=== PATIENT | female | born 1995 | race Caucasian/White ===

== ENCOUNTER 2024-06-11 14:29 | Outpatient (CLI) | payer OTHER, SELFPAY ==
--- NOTE | ~2024-06-11 | US_ITS ---
EXAMINATION: US OB transvaginal DATE: 06/11/2024 15:01 INDICATION: Confirmation of viability. . TECHNIQUE: Real-time transvaginal pelvic ultrasound was performed. COMPARISON: None. FINDINGS: The uterus measures 7.8 x 4.1 x 5.0 cm. There is an intrauterine gestational sac. A yolk sac is ident ified. The crown rump length measures 1.0 cm, which correlates with an estimated gestational a ge of 7 weeks and 1 day(s) (+/-) 5 day(s). heart motion is identified measuring 142 beats per m inute (bpm) by M-mode Doppler. The right ovary is not visualized. The left ovary measures 1.6 x 2.1 x 1.6 cm. There is no free fluid in the pelvis. IMPRESSION: 1. Single living intrauterine gestation with estimated date of delivery of 01/27/2025. Reviewed, dictated and finalized at location A. IMPRESSION: 1. Single living intrauterine gestation with estimated date of delivery of 01/27.
== END 2024-06-11 14:30 | disposition home or self-care (01) ==
PROVIDERS: PCP Advanced Practice Midwife; Visit Provider Advanced Practice Midwife
DX: O36.80X0 Pregnancy with inconclusive fetal viability, not applicable or unspecified (principal); Z3A.00 Weeks of gestation of pregnancy not specified
CPT/HCPCS: 76817

== ENCOUNTER 2024-08-27 10:17 | Outpatient (CLI) | payer OTHER, SELFPAY ==
--- NOTE | ~2024-08-27 | US_ITS ---
EXAMINATION: US OB /maternal detail DATE: 08/27/2024 12:25 INDICATION: anatomic survey. TECHNIQUE: Real-time ultrasound of the pelvis was performed. COMPARISON: Ultrasound 06/11/2024 FINDINGS: There is a single living fetus in variable presentation. The placenta is posterior, 2.9 cm from the cervix. The cervical length is 4.5 cm on transabdominal images, which is normal. heart rate is 137 beats per minute (bpm). The amniotic fluid volume is subjectively normal. The following biometric data were obtained: Biparietal diameter (BPD): 4.2 cm; head circumference (HC): 15.4 cm; abdominal circumference (AC): 12 .0 cm; femur length (FL): 2.6 cm. These measurements are discordant with high HC/AC ratio. Estimated weight is 212 g +/- 32 g, which correlates with the 16th percentile when 01/25/25 is u sed as estimated date of delivery. As single measurements, these parameters are each equal to the following estimated gestational ages: BPD: 18 weeks 5 days. HC: 18 weeks 3 days. AC: 17 weeks 5 days. FL: 17 weeks 6 days. estimated gestational age based solely on measurements from this exam is 18 weeks 1 days +/- 1 weeks 2 days. The cerebral ventricles, cerebellum, cisterna magna, nuchal fold, lip, and spine are normal. The hear t is normal. The diaphragm, stomach, kidneys, and bladder are normal. There are two umbilical arterie s to yield a 3-vessel cord. The cord insertion is normal. IMPRESSION: 1. Single living fetus in variable presentation. 2. Estimated weight is 212 g +/- 32 g, which correlates with the 16th percentile when 01/25/25 is used as estimated date of delivery. Note that estimated date of delivery based on the ultrasound f rom 06/11/2024 would be 01/27/2025. 3. Discordant biometrics with high HC/AC ratio. 4. Normal anatomic survey. Reviewed, dictated and finalized at location [] INIST IMPRESSION: 1. Single living fetus in variable presentation. 2. Estimated weight is 212 g +/- 32 g, which correlates with the 16th pe rcentile when 01/25/25 is used as estimated date of delivery. Note that estimate d date of delivery based on the ultrasound from 06/11/2024 would be 01/27/2025. 3. Discordant biometrics with high HC/AC ratio. 4. Normal anatomic survey.
== END 2024-08-27 10:18 | disposition home or self-care (01) ==
PROVIDERS: PCP Advanced Practice Midwife; Visit Provider Obstetrics & Gynecology Gynecology
DX: Z36.9 Encounter for antenatal screening, unspecified (principal)
CPT/HCPCS: 76805

== ENCOUNTER 2024-09-24 08:22 | Outpatient (CLI) | payer OTHER, SELFPAY ==
--- NOTE | ~2024-09-24 | US_ITS ---
EXAMINATION: US OB follow up DATE: 09/24/2024 08:54 INDICATION: Follow-up growth. Discordant biometrics. TECHNIQUE: Real-time ultrasound of the pelvis was performed. COMPARISON: Ultrasound 08/27/2024, 06/11/2024 FINDINGS: There is a single living fetus in breech presentation. The placenta is posterior, 5.7 cm from the ce rvix. The cervical length is 4.4 cm on transabdominal images, which is normal. heart rate is 16 0 beats per minute (bpm). The amniotic fluid index is 11.8 cm, which is normal. The following biometric data were obtained: Biparietal diameter (BPD): 5.4 cm; head circumference (HC): 20.0 cm; abdominal circumference (AC): 17 .7 cm; femur length (FL): 3.9 cm. These measurements are concordant. Estimated weight is 505 g +/- 76 g, which correlates with the 44th percentile when 01/25/25 is u sed as estimated date of delivery. As single measurements, these parameters are each equal to the following estimated gestational ages: BPD: 22 weeks 3 days. HC: 22 weeks 1 days. AC: 22 weeks 4 days. FL: 22 weeks 3 days. estimated gestational age based solely on measurements from this exam is 22 weeks 3 days +/- 1 weeks 4 days. IMPRESSION: 1. Single living fetus in breech presentation. 2. Estimated weight is 505 g +/- 76 g, which correlates with the 44th percentile when 01/25/25 is used as estimated date of delivery. Note that estimated date of delivery based on the ultrasound f rom 06/11/2024 would be 01/27/2025. Reviewed, dictated and finalized at location A. [employer] IMPRESSION: 1. Single living fetus in breech presentation. 2. Estimated weight is 505 g +/- 76 g, which correlates with the 44th pe rcentile when 01/25/25 is used as estimated date of delivery. Note that estimate d date of delivery based on the ultrasound from 06/11/2024 would be 01/27/2025.
== END 2024-09-24 08:23 | disposition home or self-care (01) ==
PROVIDERS: PCP Advanced Practice Midwife; Visit Provider Obstetrics & Gynecology Gynecology
DX: Z36.2 Encounter for other antenatal screening follow-up (principal); Z3A.22 22 weeks gestation of pregnancy
CPT/HCPCS: 76816

== ENCOUNTER 2025-01-06 16:46 | Outpatient (CLI) | payer OTHER, SELFPAY ==
[2025-01-06 17:39] LABS: Basophils Percent Auto 0.1 % (0.2-1.2); Eosinophils Absolute Auto 0.1 K/mm3 (0-0.3); Eosinophils Percent Auto 0.7 % (0-4.4); Hematocrit 34.3 % (37.0-47.0); Hemoglobin 10.9 g/dL (12.0-15.0); Immature Granulocyte Absolute 0.04 K/mm3 (0.00-0.031); Immature Granulocyte Percent A 0.5 % (0-0.5); Lymphocytes Absolute Auto 1.34 K/mm3 (0.9-3.2); Lymphocytes Percent Auto 16.5 % (18.3-44.2); Mean Corpuscular HGB Conc 31.8 g/dl (32-36); Mean Corpuscular Volume 91.2 fl (80-100); Mean Platelet Volume 11.6 fl (7.4-10.4); Monocytes Absolute Auto 0.7 K/mm3 (0.1-0.6); Neutrophils Percent Auto 74.2 % (45.5-73.1); Platelet Count Result 178 k/mm3 (150-375); Red Blood Count 3.76 M/mm3 (4.2-5.4); Red Cell Distribution Width 13.7 % (11.5-14.5); White Blood Count 8.1 K/mm3 (4.5-10.0)
[2025-01-06 17:41] LABS: Add Urine Microscopic? NO; Appearance Urine Clear (Clear); Bilirubin Urine Negative (Negative); Blood Urine Negative (Negative); Color Urine Yellow (Yellow); Glucose Urine UA Negative (Negative); Ketones Urine Negative (Negative); Leukocyte Esterase Ur Negative LEU/UL (Negative); Nitrate Urine Negative (Negative); Protein Urine Negative (Negative); Specific Grav Ur 1.004 (1.001-1.035); Urobilinogen Urine 0.2 mg/dL (<2.0)
[2025-01-06 18:12] LABS: Creatinine Urine 17.7 mg/dL; Total Protein Urine Random 17 mg/dL; Ur Ttl Prot Creatinine Ratio 0.96 mg/mg (0-0.20)
[2025-01-06 19:19] LABS: Alanine Aminotransferase 19 U/L (6-35); Albumin Level 3.3 g/dL (3.5-5.1); Alkaline Phosphatase 150 U/L (38-126); Anion Gap 5 mmol/L (4-12); Aspartate Amino Transferase 24 U/L (14-36); Bilirubin,Total 0.2 mg/dL (0.2-1.3); Blood Urea Nitrogen 6 mg/dL (7-17); Carbon Dioxide 24 mmol/L (22-30); Chloride 107 mmol/L (98-107); Estimated Glomerular Filt Rate > 60; Glucose 82 mg/dL (65-110); Potassium 3.7 mmol/L (3.4-5.0); Sodium 136 mmol/L (137-145); Uric Acid 3.5 mg/dL (2.5-7.5)
[2025-01-06 19:32] VITALS: BMI 32.9
== END 2025-01-06 19:30 | disposition home or self-care (01) ==
LOC: ANHOBOP 16:53 → ANHOBPP 16:54
PROVIDERS: Obstetrics & Gynecology; PCP Advanced Practice Midwife; Visit Provider Advanced Practice Midwife
DX: O13.9 Gestational [pregnancy-induced] hypertension without significant proteinuria, unspecified trimester (principal); Z3A.00 Weeks of gestation of pregnancy not specified
CPT/HCPCS: 36415; 59025; 80053; 81003; 82570; 84156; 84550; 85025; 99199

== ENCOUNTER 2025-01-24 09:30 | Inpatient (IN) | payer OTHER, SELFPAY ==
[2025-01-24] VITALS (181 sets, daily range): BP systolic 86–165; BP diastolic 36–127; PULSE 79–217; TEMP 36.6–37; O2SAT 92–100; BMI 33.3
--- OUTSIDE RECORDS SUMMARY | 2025-01-24 10:58 | XMS_ITS | Referral Summary ---
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 Role Phone Joseline Riebiro MD Unavailable [phone] Phillip Ramirez MD Primary Care Provider [phone] Allergies Active Allergy Reactions Criticality Noted Date Comments Sulfa (Sulfonamide Antibiotics) Hives Medium 1008/2020 Medications fluticasone propionate (FLONASE) 50 mcg/actuation nasal spray 2 Active fexofenadine-ps eudoephedrine (Debbi-D 12 Hour) 60-120 mg per 12 hr tabletIndicatio ns:Dysfunction of both eustachian tubes Take 1 tablet by mouth 2 (two) times a day 60 tablet 11 2 Active vit 35-drqa-cimvn-d cowan 27mg iron- 800 mcg-250 mg capsule Take by mouth Active magnesium gluconate 200 mg tabletIndicatio ns:hypomagnesem ia 0.5 tablets (100 mg total) Two daily Active UNABLE TO FIND daily Med Name: Focus Helps calm and focus attention Active Active Problems Problem Noted Date Diagnosed Date Family history of breast cancer 04/17/2024 Chronic eczematous otitis externa of both ears 0 12/23/2021 Non-seasonal allergic rhinitis 12/23/2021 Chronic pansinusitis 12/23/2021 Immunizations Immunization Administration Dates Next Due Pfizer SARS-CoV-2 Monovalent Vaccination (12+ Yrs) PURPLE 12/13/2020,11/20/2020 Social History Tobacco Use Types Packs/Day Years Used Date Smoking Tobacco: Never Smokeless Tobacco: Never AUDIT-C Answer Date Recorded Frequency of Alcohol Consumption Not on file 04/17/2024 Q2: How many drinks containi ng alcohol do you have on a typical day when you are drinking? 5 or 6 04/17/2024 Q3: How often do you have si x or more drinks on one occasion? Weekly 04/17/2024 Comments No Sex and Gender Information Value Date Recorded Sex Assigned at Not on file Legal Sex Female 11:49 AM [employer] Gender Identity Not on file Sexual Orientation Straight 04/14/2024 8: 28 AM CDT Last Filed Vital Signs Vital Sign Reading Time Taken Comments Blood Pressure 114/77 04/17/2024 1:08 PM CDT Pulse 70 04/17/2024 1:08 PM CDT Temperature 36.7 C (98 F) 04/17/2024 1:08 PM CDT Respiratory Rate 18 04/17/2024 1:08 PM CDT Oxygen Saturation 100% 04/17/2024 1:08 PM CDT Inhaled Oxygen Concentration - - Weight 78.8 kg (173 lb 12.8 oz) 04/17/2024 1:08 PM CDT Height 163.8 cm (5' 4.5) 04/17/2024 1:08 PM CDT Body Mass Index 29.37 04/17/2024 1:08 PM CDT Plan of Treatment Not on file Procedures Procedure Name Priority Date/Time Associated Diagnosis Comments SCREENING MAMMOGRAM BILATERAL W ISMAEL Schedule Routine, Read Routine (OP Routine) 04/25/2024 2:45 PM CDT Family history of breast cancer Breast cancer screening by mammogram from Last 3 Months or Most Recently Relevant to Health Maintenance Results * Screening Mammogram Bilateral W Ismael (04/25/2024 2:45 PM CDT) Anatomical Region Laterality Modality Breast Bilateral Mammography Impressions 04/25/2024 3:50 PM CDT BI-RADS ATLAS category (overall): 2 - Benign There is no mammographic evidence of malignancy. A 1 year screening mammogram is recommended. The patient has been or will be contacted. We recommend annual screening mammography for women at average risk of breast cancer beginning at age 40, based on guidelines of the [employer] (ACR Practice Parameter for the Performance of Screening and Diagnostic Mammography) and [employer]. For women with and elevated risk of breast cancer, please refer to the ACR Practice Parameter for specific screening recommendations. The patient will be entered into a reminder system with a target due date of 1 year for her next screening exam. Narrative 04/25/2024 3:50 PM CDT Screening Mammogram Bilateral W Ismael: 04/25/24 The study was acquired using full field digital technology and interpreted from soft copy. 2D digital mammographic views, as well as 3D digital tomosynthesis were performed in the CC and MLO projections. CLINICAL: Family history of breast cancer Breast cancer screening by mammogram. No relevant medical history has been documented for this patient. History of breast cancer in Maternal Grandmother. No comparisons were made when reading this study. BREAST TISSUE: The breasts are heterogeneously dense, which may obscure small masses. FINDINGS: The are benign right breast calcifications.No suspicious masses, suspicious calcifications, or other suspicious findings are seen within either breast. There has been no suspicious change. 

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
--- OUTSIDE RECORDS SUMMARY | 2025-01-24 10:58 | XMS_ITS | Clinical Summary ---
Author Organization [facility] [address] [place] [address] Care Team Providers Care Embossograph Operator Name Role Phone Joseline Ribeiro MD Unavailable [phone] Phillip Ramirez MD Primary Care Provider [phone] Allergies Active Allergy Reactions Criticality Noted Date Comments Sulfa (Sulfonamide Antibiotics) Hives Medium 1008/2020 Medications fluticasone propionate (FLONASE) 50 mcg/actuation nasal spray 2 Active fexofenadine-ps eudoephedrine (Debbi-D 12 Hour) 60-120 mg per 12 hr tabletIndicatio ns:Dysfunction of both eustachian tubes Take 1 tablet by mouth 2 (two) times a day 60 tablet 11 2 Active vit 73-[id number]-ubgun-d cowan 27mg iron- 800 mcg-250 mg capsule [...] SARS-CoV-2 Monovalent Vaccination (12+ Yrs) PURPLE 12/13/2020,11/20/2020 Surgical History Surgery Date Site/Laterality Comments EYE SURGERY SINUS SURGERY 08/28/2018 - 08/27/2019 Balloon dilation WISDOM TOOTH EXTRACTION Medical History Medical History Date Comments Allergic rhinitis Sinusitis Asthma Anxiety History of COVID-19 Deviated septum Ear problems Headache Migraine Family History Medical History Relation Name Comments Skin cancer Maternal Grandfather Breast cancer Maternal Grandmother Hyperlipidemia Other Hypertension Other Migraines Other Relation Name Status Comments Maternal Grandfather Maternal Grandmother Mother Alive Other Social History Tobacco Use Types Packs/Day Years [...] on file Legal Sex Female 11:49 AM [employer] Gender Identity Not on file Sexual Orientation Straight 04/14/2024 8: 28 AM CDT Obstetrics History Para Term AB IAB SAB Ectopic Multiple Livin g Live Births 0 0 0 Last Filed Vital Signs Vital Sign Reading [...] 04/17/2024 1:08 PM CDT Plan of Treatment Health Maintenance Due Date Last Done Comments Cervical Cancer Screening 1994 Depression Screening 1994 Hepatitis C Screening 1994 Regular Well Visit/Exam 18-64 2012 HPV Vaccines (3 - 3-dose series) 01/23/2014 10/31/2013, 04/15/2013 DTaP/Tdap/Td Vaccine (7 - Td or Tdap) 05/13/2019 05/13/2009, 03/15/2000, 07/04/1995, Additional history exists Covid-19 Vaccine (3 - season) 2024 12/13/2020, 11/20/2020 Breast Cancer Screening-Mammogram 04/25/2025 04/25/2024 Influenza Vaccine (Season Ended) 2025 07/18/2014, 07/16/2014, 06/24/2008, Additional history exists Hepatitis B Screening Completed 1994 , 1994, 1994 Varicella Vaccines Completed 01/29/2008, 07/04/2000 Pneumococcal vaccine <65 Aged Out No longer eligible based on patient's age to complete this topic Procedures Procedure Name Priority Date/Time Associated Diagnosis [...] age 40, based on guidelines of the [employer] (ACR Practice Parameter for the Performance of Screening and Diagnostic Mammography) and [employer]. For women [...] Most Recently Relevant to Health Maintenance Insurance [facility] CHOICE PLUS [facility]ICE PLUS Care Teams Embossograph Operator Relationship Specialty Start Date End Date Phillip Ramirez MD [address] [facility] [address] [place] [address] PCP - General Family Medicine 02/15/24 Joseline Ribeiro MD [address] [facility] [address] [place] [address] Referring Physician Gynecology 02/15/24
[2025-01-24] MEDS: miSOPROStol 25 MCG TABLET 50 MCG BUCCAL (11:14)
[2025-01-24 11:45] LABS: Basophils Percent Auto 0.1 % (0.2-1.2); Eosinophils Percent Auto 0.5 % (0-4.4); Hemoglobin 12.4 g/dL (12.0-15.0); Immature Granulocyte Absolute 0.04 K/mm3 (0.00-0.031); Immature Granulocyte Percent A 0.5 % (0-0.5); Lymphocytes Absolute Auto 1.17 K/mm3 (0.9-3.2); Lymphocytes Percent Auto 13.3 % (18.3-44.2); Mean Corpuscular HGB Conc 32.6 g/dl (32-36); Mean Corpuscular Hemoglobin 29.2 pg (26-34); Mean Corpuscular Volume 89.6 fl (80-100); Mean Platelet Volume 11.6 fl (7.4-10.4); Monocytes Absolute Auto 0.7 K/mm3 (0.1-0.6); Monocytes Percent Auto 7.4 % (2.6-8.5); Neutrophils Absolute Auto 6.9 K/mm3 (1.3-6.7); Neutrophils Percent Auto 78.2 % (45.5-73.1); Platelet Count Result 177 k/mm3 (150-375); Red Blood Count 4.24 M/mm3 (4.2-5.4); Red Cell Distribution Width 14.3 % (11.5-14.5); White Blood Count 8.8 K/mm3 (4.5-10.0)
--- NOTE | 2025-01-24 12:20 | WPDOBADMIT ---
Obstetrics - Admit Note Admission Note: record reviewed. No pertinent additions to the history and/or any subsequent changes in the physical findings that are not consistent with the expected course of the were found. Additions to the history and/or subsequent changes in the physical findings follow. Admit for SROM, sve /-2, AROM forebag large amount of clear, odorless fluid
[2025-01-24 12:23] LABS: Syphilis IgG/IgM Antibody Negative (Negative)
[2025-01-24 12:34] LABS: HIV 1/2 Ab P24 Ag Result Negative (Negative)
[2025-01-24] MEDS: LACTATED RINGERS 500 ML 999 ML IV CONT (12:38)
--- NOTE | 2025-01-24 13:31 | WPDANESEPPF ---
Anes - Initial Pre Proc Eval Date/Time: 01/24/25 13:31 Surgeon: Robby Harrison MD Pre Op Diagnosis: Labor Patient Data Age: 29 Gender: F Height: 1.63 m Weight: 88 kg Last Vital Signs O2 Del Method Room Air 01/24/25 11:43 Allergies Allergy/AdvReac Type Severity Reaction Status Date / Time No Known Allergies Allergy Verified 01/24/25 10:51 Home Medications ?Medication ?Instructions ?Recorded ?Confirmed ?Type aspirin 81 mg chewable tablet 81 mg PO DAILY 12/26/24 12/26/24 History (Aspirin Childrens) docusate sodium 100 mg capsule 100 mg PO DAILY 12/26/24 12/26/24 History (Colace) fexofenadine 60 mg tablet (Debbi 60 mg PO Q12H 12/26/24 12/26/24 History Allergy) magnesium aspart,citrate,oxide mg PO 12/26/24 History (Triple Magnesium Complex) omeprazole 10 mg capsule,delayed 10 mg PO DAILY 12/26/24 12/26/24 History release vit no.95-ferrous 1 tablet PO DAILY 12/26/24 12/26/24 History fumarate 28 mg-folic acid 800 mcg tablet () vitamin D3 20 mcg-vit K2 180 tablet PO 12/26/24 History mcg-calcium fructoborate 216 mg tablet Laboratory Tests 01/24/25 11:32 WBC 8.8 K/mm3 (4.5-10.0) RBC 4.24 M/mm3 (4.2-5.4) Hgb 12.4 g/dL (12.0-15.0) Hct 38.0 % (37.0-47.0) MCV 89.6 fl (80-100) MCH 29.2 pg (26-34) MCHC 32.6 g/dl (32-36) RDW 14.3 % (11.5-14.5) Plt Count 177 k/mm3 (150-375) MPV 11.6 H fl (7.4-10.4) Immature Gran % (Auto) 0.5 % (0-0.5) Neut % (Auto) 78.2 H % (45.5-73.1) Lymph % (Auto) 13.3 L % (18.3-44.2) Tripp % (Auto) 7.4 % (2.6-8.5) Eos % (Auto) 0.5 % (0-4.4) Baso % (Auto) 0.1 L % (0.2-1.2) Lymph # (Auto) 1.17 K/mm3 (0.9-3.2) Tripp # (Auto) 0.7 H K/mm3 (0.1-0.6) Eos # (Auto) 0.0 K/mm3 (0-0.3) Baso # (Auto) 0.0 K/mm3 (0.0-0.1) Abs Immat Gran (auto) 0.04 H K/mm3 (0.00-0.031) Absolute Neuts (auto) 6.9 H K/mm3 (1.3-6.7) Absolute Nucleated RBC 0.000 K/mm3 (0.0-0.012) Nucleated RBC % 0.0 % (0.0-0.2) Syphilis IgG/IgM Ab Negative (Negative) HIV 1&2 Ab/P24 Ag 4thGn Negative (Negative) Blood Type A Negative Antibody Screen Negative Patient hx anesthesia problems: none Family hx anesthesia problems: none Results Review: All pre-operative results and documents have been reviewed as part of the pre-operative evaluation. [facility] Past Medical History Medical History (Updated 01/24/25 @ 13:31 by Tanner Barraza DO) Asthma Social History Social History Do You Feel Safe in your Home?: Yes Lack of Transportation: No Lack of Food: Never True Current Housing: I Have Housing Concerned About Future Housing: No Difficulty Paying Gas/Electric Bills: No Difficulty Paying for Meds: No Currently Unemployed: No Education: Master's Degree or Higher Difficulty w/ Childcare or Family Care: No Spiritual care concerns: No Anes - Eval Final PreProcedure Day of Procedure 01/24/25 13:31 Patient weight: obese Heart: regular rate and rhythm Lungs: clear to auscultation Airway: Mallampati scale class II Neurological: alert and oriented Last oral intake: >/= 8 hours ASA classification: II Emergent: no Anesthetic plan: proceed Anesthesia type and monitoring: general GIVS and standard monitoring Results Review: All pre-operative results and documents have been reviewed as part of the pre-operative evaluation. Informed Consent: The patient's anesthetic plan and its attendant risks and benefits were discussed with the patient/family/POA. Questions were solicited and answers provided to the satisfaction of the patient/family/POA.
[2025-01-24] MEDS: OXYTOCIN 30 UNITS/NS 500 ML 30 UNITS/500 ML BAG IV CONT (15:43)
[2025-01-24] MEDS: LACTATED RINGERS 1,000 ML 125 ML IV CONT (19:39)
[2025-01-24] MEDS: ONDANSETRON INJ 4 MG/2 ML VIAL IV PUSH (23:41)
[2025-01-25] VITALS (23 sets, daily range): BP systolic 101–135; BP diastolic 59–100; PULSE 75–169; RESP 16–19; TEMP 36.6–37.1; O2SAT 81–100
--- NOTE | 2025-01-25 01:28 | PM.OBPRVD ---
OB - Vaginal Delivery Note Procedure Delivery date: 01/25/25 Induction method: None Delivery augmentation: Rupture of Membranes and Pitocin Delivery monitor: External FHT and External Uterine Route of delivery: Episiotomy description: None Laceration Description: Superficial Delivery repair: vicryl (1 suture) Specimen: Yes Quantitative Blood Loss (ml): 75 Anesthesia type: Epidural Disposition: Floor Complications: No immediate complications Baby Date of : 01/25/25 Time of : 01:06 Gestational Age by Date: 40 gender: Female presentation: vertex position: Left Occiput Anterior Placenta delivery description: Manual Removal and Other (us at bs, clear endometrial stripe) Cord Vessel Description: 3 Vessels and Delayed Cord Clamping score one minute: 8 score five minutes: 9
[2025-01-25] MEDS: OXYTOCIN 30 UNITS/NS 500 ML 30 UNITS/500 ML BAG 125 UNITS IV CONT (01:49)
[2025-01-25] MEDS: WITCH HAZEL 40 PADS 1 PAD TOPICAL (03:12)
[2025-01-25] MEDS: BENZOCAINE 20% AER SPR (*SP) 56 GM CAN 1 SPRAY TOPICAL (03:12)
--- NOTE | 2025-01-25 03:49 | OBPPTRN ---
Patient transferred to post room #290 via wheelchair. Support person present. Oriented to unit, room, information board, rooming in, admission packet and security measures. Patient verbalizes understanding.
--- NOTE | 2025-01-25 07:35 | PC.NURSE ---
Patient requested a latch check. Baby is currently sleeping and mom is holding her. Patient states that she feels that the latch on the left is more painful than the right. Patient is encouraged to call out for assistance when infant is awake and ready to feed.
--- NOTE | 2025-01-25 08:50 | PC.NURSE ---
Patient called out for a latch check. Mom has baby in cradle on the right breast. Baby is not well aligned and mom is shown how to place her tummy to tummy for a closer latch that doesn't tug on the breast tissue. The lips are flanged out and the parents are shown how to observe the corner of baby's mouth for a wide angle. Mom says she has some soreness but that the left nipple hurts more. She states that her nipples have been very sensitive throughout . The left nipple has a small bruised area. Mom will call out for a latch check when baby feeds on the left side. RN updated.
[2025-01-25] MEDS: IBUPROFEN 600 MG TABLET PO ×2 (10:08→16:18)
--- NOTE | 2025-01-25 13:05 | PC.NURSE ---
Met with patient to see if the last feeding went well. She states that baby has been sleepy at the last 2 feedings. Encouraged her to call for assistance with waking baby and positioning at the next feeding. Patient states she will call if needed.
--- NOTE | 2025-01-25 17:05 | PC.NURSE ---
Patient requested assistance. She was able to feed baby on the right breast for 5 minutes before baby fell asleep. She would like to try football on the left breast. Mom demonstrates how to hold baby and her breast very well. Baby is sleepy and does not give any attempts to latch. Mom is encouraged that she is doing all the right steps and holding baby appropriately. She does state that her nipples are very sore. She is using coconut oil and has silverettes and hydrogel pads. Encouraged mom to bring baby to the breast when latching and to maintain the very close deep latch throughout the feeding with baby's chin on her breast the entire time. Mom did take a class. She was provided with the hand expression visual aid and encouraged to watch the hand expression video that goes along with the handout. Parents are receptive to education and agree that they will call out for additional assistance as needed. RN updated.
[2025-01-26 03:35] LABS: Hematocrit 33.9 % (37.0-47.0); Hemoglobin 10.9 g/dL (12.0-15.0)
[2025-01-26] MEDS: IBUPROFEN 600 MG TABLET PO ×2 (05:03→13:17)
[2025-01-26 08:11] VITALS: BP 122/82; PULSE 78; RESP 18; TEMP 37; O2SAT 98
--- NOTE | 2025-01-26 09:47 | P.PNOB_ITS ---
OB - PN: Subj Subjective Date/time seen: 01/26/25 09:47 Patient comments: no complaints, pain well controlled, incisional pain, tolerating diet and flatus present OB - PN: Obj Data Labs 01/26/25 03:30 Labs: Laboratory Results - last 24 hr 01/26/25 03:30 Hgb 10.9 L Hct 33.9 L OB - PN A/P Plan day: 1 Plan: routine care Comments: No problems, routine care Time Spent With Patient Time: Total time spent is greater than 50% in coordination of care (as documented) at patient's floor/unit and/or counseling patient: Exam 2 Const: General: comfortable, no acute distress and alert Resp: Effort & Inspection: normal respiratory effort Auscultation: no crackles, no rales and no rhonchi Cardio: Rate: regular rate Heart sounds: no click, no murmurs and no rubs GI: Inspection: non-distended GI Palp: No Tenderness to palpation present (GI) Auscultation: normal bowel sounds Other: Incision - CDI Extrem: General: normal to inspection, no pedal edema and no calf tenderness
[2025-01-26 19:05] VITALS: BP 118/79; PULSE 68; RESP 16; TEMP 36.8; O2SAT 99
[2025-01-27 07:35] VITALS: BP 117/73; PULSE 72; RESP 18; TEMP 36.4; O2SAT 99
[2025-01-27 08:00] VITALS: PULSE 72; RESP 18; O2SAT 99
--- NOTE | 2025-01-27 08:29 | P.PNOB_ITS ---
OB - PN: Subj Subjective Date/time seen: 01/27/25 08:29 Patient comments: no complaints, pain well controlled and tolerating diet OB - PN: Obj Data Labs 01/26/25 03:30 OB - PN A/P Plan day: 2 Plan: routine care and discharge home Time Spent With Patient Time: Total time spent is greater than 50% in coordination of care (as documented) at patient's floor/unit and/or counseling patient: Exam 2 Const: General: comfortable and no acute distress Resp: Effort & Inspection: normal respiratory effort Auscultation: no rales, no rhonchi and no wheezes Cardio: Rate: regular rate Heart sounds: no click, no murmurs and no rubs GI: GI Palp: Yes Soft to palpation and No Tenderness to palpation present (GI) Auscultation: normal bowel sounds Extrem: General: normal to inspection, no pedal edema and no calf tenderness
--- NOTE | 2025-01-27 08:29 | P.DS_ITS ---
DS: Admitting Diagnosis Discharge Date 01/27/25 Admitting Diagnosis term DS: Discharge Diagnosis Discharge Diagnosis (1) Term delivered: Code(s): O80 - Encounter for full-term uncomplicated delivery Status: Acute OB - DS: Summary OB Procedures : None OB Procedures Intrapartum: Spontaneous Vag Delivery OB Procedures: : None Peripartum Data Laceration Description: Superficial Episiotomy description: None Time Spent with Patient Time attestation: Total time spent providing and/or coordinating discharge services: Discharge Plan Discharge Consulting providers: Velia Peña Discharging Clinician: Robby Harrison Patient Disposition: Home Activity: pelvic rest Diet: regular Patient Instructions: Antibiotic Form Patient Language: Upper Sorbian Stand Alone Forms: General Discharge Information Follow-up/Referrals: Robby Harrison MD [Physician] - Discharge Medications: Continued aspirin [Aspirin Childrens] 81 mg tablet,chewable 81 mg PO DAILY docusate sodium [Colace] 100 mg capsule 100 mg PO DAILY PNV cmb#95-ferrous fumarate-FA [] 28 mg iron- 800 mcg tablet 1 tablet PO DAILY vit D3-vit K2-ca fructoborate 20 mcg-180 mcg- 216 mg tablet PO omeprazole 10 mg capsule,delayed release(DR/EC) 10 mg PO DAILY fexofenadine [Debbi Allergy] 60 mg tablet 60 mg PO Q12H Triple Magnesium Complex 400 mg magnesium capsule PO Date of admission: 01/24/25 09:30 Primary Care Provider: Catrachita Hoyos Admitting Provider: Robby Harrison Attending physician on admission: Robby Harrison Condition: Stable
[2025-01-27] MEDS: IBUPROFEN 600 MG TABLET PO (08:41)
[2025-01-27] MEDS: DIBUCAINE 1% OINTMENT 30 GM TUBE 1 APPLIC TOPICAL (08:42)
--- NOTE | 2025-01-27 09:00 | PC.NURSE ---
Patient called out for a latch check. She has been using a nipple shield on the left breast due to a cracked and painful nipple. Baby latches well on the right breast but doesn't suckle at this time. We reviewed sleepy versus cluster feeding and anticipatory guidance for their first days at home. Parents have chosen to supplement with formula after due to satisfaction. Mom states that she has a Spectra pump at home and has a nipple measure to fit herself with. Encouraged her to use the resources on the [employer] web site for general pump setting recommendations. Advised that patient focus on adjusting to the highest comfortable suction setting. She is educated to pump after any feedings she doesn't feel like baby stimulated her breast adequately. If she wants to build a supply of milk, it is recommended she pump after the first of the morning. Discussed sufficient volumes for supplementation and increasing as infant's need increases. Parents are referred back to the Mom/Baby Guide for reference of common questions and concerns. Dad is present and very supportive. Patient is aware that the Services are available to her after discharge and that she may call us at any time. We reviewed use of the nipple shield and sizing options as well as how to ensure baby has a deep latch throughout the feeding. Mom states that she feels better since we spoke and that her questions were answered. Parents are encouraged to call out for any additional assistance needed. RN updated.
== END 2025-01-27 12:35 | disposition home or self-care (01) | DRG 807 ==
LOC: ANHLDR 11:25 → ANHOB2 01-25 03:50
PROVIDERS: Advanced Practice Midwife; Admitting Provider Obstetrics & Gynecology; PCP Advanced Practice Midwife; Visit Provider Obstetrics & Gynecology
DX: O70.0 First degree perineal laceration during delivery (principal); Z37.0 Single live birth; Z3A.40 40 weeks gestation of pregnancy
CPT/HCPCS: 36415; 85014; 85018; 85025; 86593; 86703; 86850; 86900; 86901; A9270; G0432; J2405; J2590; J2795; J7120

== ENCOUNTER 2025-05-02 08:30 | Outpatient (RCR) | payer OTHER, SELFPAY ==
--- NOTE | 2025-03-18 15:28 | OPREHPOC ---
Outpatient Therapy Plan of Care This is a Multidisciplinary Plan of Care that may contain components documented by all disciplines (PT, OT, and ST.) PT Problem 1 PT Problem #1 Knowledge Deficit PT Goal 1 Goal / Goal Update 1. Patient will perform independent HEP Target Visit 2 PT Problem 2 PT Problem #2 Pain PT Goal 1 Goal / Goal Update 1. No pain with BM or abdominal pain from constipation 2. No pelvic pain on exam Target Visit 5 PT Problem 3 PT Problem #3 Impaired Functional ADLs PT Goal 1 Goal / Goal Update 1. Patient able to use tampon without pain or difficulty 2. Patient will report BM 5 days out of 7 3. Patient will report urinary incontinence no more than 1 time per 2 weeks Target Visit 5
--- NOTE | 2025-03-18 15:28 | PTOPEVAL1 ---
Assessment and note entered by Dulce Lara DPT Evaluation Information Assessment Status Evaluation Diagnosis m62.89 ICD-10 Condition Codes (PT) Weakness R53.1,Pelvic and perineal pain R10.2, Stress incontinence N39.3 Subjective Information Pt is about 8 weeks . Previous pelvic floor PT for constipation issues. Voids 4-5 times a day and 0 at night. Stress incontinence 3-4 times a day with coughing/sneezing or walking quickly. Sometimes has to change underwear due to it. Small volume. Denies pain with urination. Can hold urge to void up to an hour or so as needed. BM every 3-4 days, does not sit on the toilet very long when she does need to BM. Has been trying to increase her fiber and Miralax. BM are painful and has some hemorrhoids, and abdominal pain sometimes as well. Highest pain 4/10 and lowest 1/ 10. Pelvic pain with intercourse and tampon use that is worse since delivery. This is patient's first , vaginal delivery with level 1 tear. Possible IC. Patient goal: decrease pain, decrease constipation , stop having urine leakage Returns to [place] in July. Reported Pain Level Pain Score 2: Self Report Assessment PT Clinical Summary The patient is presenting to skilled therapy at approximately 8 weeks with reports of pelvic pain, abdominal pain, constipation, and urinary incontinence. She presents with significantly increased pelvic floor muscle tone ( L) and difficulty relaxing after contraction, and demonstrates mild diastasis and abdominal weakness . These impairments are contributing to her pain, constipation, and incontinence and she will benefit from therapy to reduce symptoms and return to full function. Plan of Care Interventions Electrical Stimulation,Hot Pack/Cold Pack,Manual Therapy,Neuro Re-education,Patient/Caregiver Education,Therapeutic Activities,Therapeutic Exercise PT Services Indicated Yes Treatment Frequency and 1 time a week for 5 visits Duration These treatments will address the objective and functional deficits as defined above. The patient will be advanced safely and appropriately in order for the patient to progress towards his/her prior level of function. Additional exercises will be introduced and as well as a comprehensive home exercise program upon discharge, if needed, ?to ensure carryover of functional gains achieved in the clinic. This treatment plan has been reviewed and agreement upon by the patient.
--- NOTE | 2025-04-16 11:30 | PCPTNOTE ---
Patient called to cancel appointment 04/16/25 due to illness.
--- NOTE | 2025-05-02 09:13 | OPREHPOC ---
Outpatient Therapy Plan of Care This is a Multidisciplinary Plan of Care that may contain components documented by all disciplines (PT, OT, and ST.) PT Problem 1 PT Problem #1 Knowledge Deficit PT Goal 1 Goal / Goal Update 1. Patient will perform independent HEP Target Visit 2 Progress Met PT Problem 2 PT Problem #2 Pain PT Goal 1 Goal / Goal Update 1. No pain with BM or abdominal pain from constipation 2. No pelvic pain on exam update 05/02/25 1. improved 2. improved to 3-4/10 Target Visit 5 Progress Partially Met PT Problem 3 PT Problem #3 Impaired Functional ADLs PT Goal 1 Goal / Goal Update 1. Patient able to use tampon without pain or difficulty 2. Patient will report BM 5 days out of 7 3. Patient will report urinary incontinence no more than 1 time per 2 weeks update 05/02/25 1. improved 2. every other day 3. met Target Visit 5 Progress Partially Met
--- NOTE | 2025-05-02 09:14 | PTOPPROG ---
Assessment and note entered by Dulce Lara DPT Evaluation Information Assessment Status Progress Diagnosis m62.89 ICD-10 Condition Codes (PT) Weakness R53.1,Pelvic and perineal pain R10.2, Stress incontinence N39.3 Subjective Information Pt is 13 weeks now. Pt reports she feels some improvements with therapy. Reports her overall pain has decreased. Highest 3-4/10 and lowest 0/10. Voiding about 6 times a day, 0-1 at night. No incontinence in the last week, but does feel there are moments she might and is able to stop it. BM every other day. Has not yet ordered pelvic wand but plans to. Assessment PT Clinical Summary The patient has made good progress in therapy overall. She reports decreased pain, no incontinence in the last week, and improved frequency of BM. Due to her progress but continued pain, plan to have patient continue HEP and follow up in approximately 4 weeks to determine any further therapy needs at that time. Plan of Care Interventions Electrical Stimulation,Hot Pack/Cold Pack,Manual Therapy,Neuro Re-education,Patient/Caregiver Education,Therapeutic Activities,Therapeutic Exercise PT Services Indicated Yes Treatment Frequency and 1 visit in 4 weeks Duration These treatments will address the objective and functional deficits as defined above. The patient will be advanced safely and appropriately in order for the patient to progress towards his/her prior level of function. Additional exercises will be introduced and as well as a comprehensive home exercise program upon discharge, if needed, ?to ensure carryover of functional gains achieved in the clinic. This treatment plan has been reviewed and agreement upon by the patient.
--- NOTE | 2025-06-04 12:52 | PTOPDC ---
Assessment and note entered by Dulce Lara DPT Evaluation Information Assessment Status Discharge - Pt Not Present Diagnosis m62.89 ICD-10 Condition Codes (PT) Weakness R53.1,Pelvic and perineal pain R10.2, Stress incontinence N39.3 Subjective Information - Assessment PT Clinical Summary Patient has not returned for follow up visit after reevaluation 05/02/25. Her case will be discharged this date. Plan of Care PT Services Indicated No
== END 2025-06-04 15:54 | disposition home or self-care (01) ==
LOC: ANHPT 08:30
PROVIDERS: PCP Advanced Practice Midwife; Visit Provider Advanced Practice Midwife
DX: M62.89 Other specified disorders of muscle (principal)
CPT/HCPCS: 97110; 97112; 97140; 97162; 97530